=== PATIENT | female | born 1955 | race Caucasian/White ===

== ENCOUNTER 2020-07-24 07:02 | Day surgery (SDC) | payer OTHER ==
[~2020-07-24] VITALS: Ht 165.1 cm; Wt 93.9 kg
[2020-07-24 11:45] VITALS: BP 157/89
[2020-07-24 14:41] VITALS: BP 142/80
== END 2020-07-24 15:00 ==
LOC: DS 07:02 → OR 13:00 → DS 15:00
PROVIDERS: ATTEND Internal Medicine Gastroenterology
DX: K59.00 Constipation, unspecified (principal); K63.5 Polyp of colon; K64.8 Other hemorrhoids; F41.8 Other specified anxiety disorders; E78.5 Hyperlipidemia, unspecified; E03.9 Hypothyroidism, unspecified; I10 Essential (primary) hypertension; R73.03 Prediabetes; G43.909 Migraine, unspecified, not intractable, without status migrainosus; Z86.718 Personal history of other venous thrombosis and embolism; Z98.84 Bariatric surgery status; Z88.8 Allergy status to other drugs, medicaments and biological substances; Z79.899 Other long term (current) drug therapy
CPT/HCPCS: 45378; J1200; J1610; J2250; J2310; J3010; J3490